=== PATIENT | male | born 1930 | race Caucasian/White ===

== ENCOUNTER 2017-01-19 09:10 | Inpatient (IN) | payer MEDICARE, BC ==
[2017-01-21] MEDS ORDERED: guaiFENesin 600 MG Tab.ER PO PRN (13:37)
[2017-01-21] MEDS ORDERED: Albuterol HFA 18 Gm Inhaler INH PRN (13:37)
[2017-01-21] MEDS: Omeprazole 20 MG Cap.CR PO SCH (17:06)
[2017-01-21] MEDS: Montelukast 10 MG Tab PO SCH (21:14)
[2017-01-21] MEDS: Latanoprost 0.005% Ophth Soln 2.5 ML Bottle EYEBOTH SCH (21:14)
[2017-01-21] MEDS: oxyCODONE 5 MG Tab PO PRN (21:21)
[2017-01-22] MEDS: Omeprazole 20 MG Cap.CR PO SCH ×2 (06:05→17:07)
[2017-01-22] MEDS: oxyCODONE 5 MG Tab PO PRN ×2 (08:16→23:08)
[2017-01-22] MEDS: Multivitamins with Minerals/Iron/Folic Acid/Lycopene Tab PO SCH (08:17)
[2017-01-22] MEDS: Calcium Citrate/Vitamin D3 315 MG-250 Unit Tab PO SCH (08:18)
[2017-01-22] MEDS: Potassium Chloride 20 MEQ Tab.ER PO SCH (08:18)
[2017-01-22] MEDS: Hydrochlorothiazide 25 MG Tab PO SCH (08:19)
[2017-01-22] MEDS: Lutein/Minerals/Vitamins A, C & E Tab PO SCH (08:19)
[2017-01-22] MEDS: Cholecalciferol (Vitamin D3) 1,000 Unit Tab PO SCH (08:20)
[2017-01-22] MEDS: Fluticasone/Salmeterol 500-50 MCG Inhalation Powder 14/Diskus INH SCH ×2 (09:00→21:24)
[2017-01-22] MEDS: Magnesium Oxide 500 MG Tab PO SCH (12:34)
--- NOTE | 2017-01-22 16:15 | HP ---
HISTORY OF PRESENT ILLNESS: The patient was having some abdominal pain, fever, nausea, and vomiting. He went to the emergency room in [place], [place]. At that time, the patient was hypotensive and had a low blood pressure. He was transferred to [facility]. The patient continued to be hypotensive after IV fluids. He was admitted to the Intensive Care Unit in [place] with septic shock secondary to diverticulitis. The patient was transferred here yesterday 01/21/2017 for swing bed status. PAST MEDICAL HISTORY: The patient does have a history of diverticulitis, asthma, hypertension, and GERD. MEDICATIONS: Medications that the patient was taking at home or coming from hospital in [place]; he was on omeprazole 20 mg twice a day, potassium chloride 20 mEq daily, Symbicort 2 puffs twice a day, albuterol inhaler as needed, calcium citrate with vitamin D3 2 tablets daily, oxycodone 5 mg every 6 hours as needed, multivitamin, vitamin D3 2000 units daily, some guaifenesin as needed, Ocuvite 1 tablet daily, some Xalatan eyedrops one drop both eyes at bedtime. He is taking some HCTZ 25 mg daily, along with Singulair 10 mg at bedtime. ALLERGIES: Cipro and latex. SOCIAL/PERSONAL HISTORY: The patient is retired dentist. He does live with his in an apartment building in [place], [place]. He denies any alcohol or tobacco use. He states he quit smoking 30 years ago. REVIEW OF SYSTEMS: CONSTITUTIONAL: No weight loss. No fever. No chills. No night sweats. Appetite is good. No fatigue. EYES: No recent visual changes. ENT: No sinus congestion or hoarseness. CARDIOVASCULAR: No chest pain or palpitations. RESPIRATORY: No cough. No shortness of breath. GI: No vomiting, diarrhea or melena. : No dysuria or hematuria. MUSCULOSKELETAL: No new bone pain or joint swelling. INTEGUMENTARY: No rash or pruritus. NEUROLOGIC/PSYCHIATRIC: No recent headache or focal weakness. No depressive symptoms. ENDOCRINE: No heat or cold intolerances or polydipsia. HEMATOLOGIC/LYMPHATIC: No excessive bruising or lymph node swelling. ALLERGIC/IMMUNOLOGIC: No hives or recurrent infections. PHYSICAL EXAMINATION: GENERAL: This is an elderly white male, in no acute distress. VITAL SIGNS: Temperature is 97.6, pulse 98, blood pressure is 119/87, respiratory rate 20, and oxygen sat saturation on 3L nasal cannula is 98%. HEENT: Head is normocephalic. EOMS are intact. Pupils are equal, round, and reactive to light and accommodation. Bilateral tympanic membranes are intact. Nose is clear. No pharyngeal erythema noted. NECK: Supple. No JVD. Trachea midline. LUNGS: Clear to auscultation throughout lung elder. Slightly diminished at bilateral bases. CARDIAC: Regular rate and rhythm. No murmurs identified. ABDOMEN: Soft, nontender, and nondistended. Bowel sounds present x4. EXTREMITIES: Full range of motion. No joint effusions noted. NEUROLOGICAL: Grossly intact. DIAGNOSTIC: The patient had lab work drawn yesterday morning prior to transfer to the [facility]. The patient's magnesium level yesterday morning was low at 1.7. The patient's chemistry panel showed glucose 102, BUN 11, creatinine 0.73, sodium 131, potassium 3.3, chloride 89, calcium 8.9, phosphorus 3.4, and albumin 3.3. Corrected calcium was 9.5. GFR was greater than 90. The patient's CBC that was obtained showed a white count of 5.1, hemoglobin 12.9, and platelet count at 308. IMPRESSION/PLAN: 1. Recent episode of diverticulitis with septic shock. Plan: The patient is admitted here at swing bed status. We are going to order physical therapy for strengthening and conditioning. The patient does live in apartment in [place] with his . 2. Maybe some chronic obstructive pulmonary disease with history of asthma. Plan: The patient was taking Symbicort at home. He was transferred here on Advair. We will just continue with Advair Diskus 500/50 one inhalation twice daily. Continue Singulair 10 mg at bedtime. He does have an albuterol inhaler that he can use it as needed. We will continue with oxygen to keep his sats greater than 92%. We will try to wean the patient off that as tolerated. 3. Hypertension. Plan: The patient's blood pressures have been well- controlled since admitted. We will continue with HCTZ 25 mg daily. 4. Gastroesophageal reflux disease. Plan: Continue with omeprazole 20 mg twice daily. 5. Hypokalemia. The patient's potassium level that was drawn yesterday morning which was 01/21/2017, was slightly on the low side at 3.3. We will continue with potassium chloride 20 mEq p.o. daily. 6. Pain. The patient denies any pain at this time. He can take some oxycodone 5 mg tablets as needed. 7. Hypomagnesemia. Plan: The patient's magnesium level that was drawn yesterday morning was slightly low at 1.7. We will start the patient on magnesium oxide 500 mg daily and Repeat magnesium level in a few days. /[id number]/MODL
[2017-01-22] MEDS ORDERED: Fluticasone/Salmeterol 500-50 MCG Inhalation Powder 14/Diskus INH SCH (21:00)
[2017-01-22] MEDS: Montelukast 10 MG Tab PO SCH (21:24)
[2017-01-22] MEDS: Latanoprost 0.005% Ophth Soln 2.5 ML Bottle EYEBOTH SCH (21:24)
[2017-01-23] MEDS: Omeprazole 20 MG Cap.CR PO SCH ×2 (06:41→17:54)
[2017-01-23] MEDS: Cholecalciferol (Vitamin D3) 1,000 Unit Tab PO SCH (10:09)
[2017-01-23] MEDS: Fluticasone/Salmeterol 500-50 MCG Inhalation Powder 14/Diskus INH SCH ×2 (10:09→20:54)
[2017-01-23] MEDS: Calcium Citrate/Vitamin D3 315 MG-250 Unit Tab PO SCH (10:10)
[2017-01-23] MEDS: Hydrochlorothiazide 25 MG Tab PO SCH (10:10)
[2017-01-23] MEDS: Lutein/Minerals/Vitamins A, C & E Tab PO SCH (10:10)
[2017-01-23] MEDS: Magnesium Oxide 500 MG Tab PO SCH (10:10)
[2017-01-23] MEDS: Multivitamins with Minerals/Iron/Folic Acid/Lycopene Tab PO SCH (10:10)
[2017-01-23] MEDS: Potassium Chloride 20 MEQ Tab.ER PO SCH (10:10)
[2017-01-23] MEDS: Latanoprost 0.005% Ophth Soln 2.5 ML Bottle EYEBOTH SCH (20:55)
[2017-01-23] MEDS: Montelukast 10 MG Tab PO SCH (20:55)
[2017-01-24] MEDS: oxyCODONE 5 MG Tab PO PRN ×2 (01:07→16:47)
[2017-01-24] MEDS: Omeprazole 20 MG Cap.CR PO SCH ×2 (06:23→16:44)
[2017-01-24] MEDS: Fluticasone/Salmeterol 500-50 MCG Inhalation Powder 14/Diskus INH SCH ×2 (08:37→20:29)
[2017-01-24] MEDS: Potassium Chloride 20 MEQ Tab.ER PO SCH (08:38)
[2017-01-24] MEDS: Calcium Citrate/Vitamin D3 315 MG-250 Unit Tab PO SCH (08:38)
[2017-01-24] MEDS: Lutein/Minerals/Vitamins A, C & E Tab PO SCH (08:38)
[2017-01-24] MEDS: Multivitamins with Minerals/Iron/Folic Acid/Lycopene Tab PO SCH (08:38)
[2017-01-24] MEDS: Magnesium Oxide 500 MG Tab PO SCH (08:38)
[2017-01-24] MEDS: Hydrochlorothiazide 25 MG Tab PO SCH (08:38)
[2017-01-24] MEDS: Cholecalciferol (Vitamin D3) 1,000 Unit Tab PO SCH (08:38)
[2017-01-24] MEDS: Acetaminophen 325 MG Tab PO PRN (16:44)
[2017-01-24] MEDS: Latanoprost 0.005% Ophth Soln 2.5 ML Bottle EYEBOTH SCH (20:30)
[2017-01-24] MEDS: Montelukast 10 MG Tab PO SCH (20:30)
[2017-01-25] MEDS: oxyCODONE 5 MG Tab PO PRN ×2 (04:43→18:15)
[2017-01-25] MEDS: Omeprazole 20 MG Cap.CR PO SCH ×3 (04:44→16:31)
[2017-01-25] MEDS: Acetaminophen 325 MG Tab PO PRN ×2 (06:27→21:19)
[2017-01-25] MEDS: Fluticasone/Salmeterol 500-50 MCG Inhalation Powder 14/Diskus INH SCH ×2 (08:35→21:15)
[2017-01-25] MEDS: Calcium Citrate/Vitamin D3 315 MG-250 Unit Tab PO SCH (09:18)
[2017-01-25] MEDS: Cholecalciferol (Vitamin D3) 1,000 Unit Tab PO SCH (09:19)
[2017-01-25] MEDS: Lutein/Minerals/Vitamins A, C & E Tab PO SCH (09:19)
[2017-01-25] MEDS: Hydrochlorothiazide 25 MG Tab PO SCH (09:19)
[2017-01-25] MEDS: Multivitamins with Minerals/Iron/Folic Acid/Lycopene Tab PO SCH (09:19)
[2017-01-25] MEDS: Magnesium Oxide 500 MG Tab PO SCH (09:19)
[2017-01-25] MEDS: Potassium Chloride 20 MEQ Tab.ER PO SCH (09:20)
[2017-01-25] MEDS: Montelukast 10 MG Tab PO SCH (21:14)
[2017-01-25] MEDS: Latanoprost 0.005% Ophth Soln 2.5 ML Bottle EYEBOTH SCH (21:16)
[2017-01-26] MEDS: Omeprazole 20 MG Cap.CR PO SCH ×2 (06:00→16:49)
[2017-01-26] MEDS: oxyCODONE 5 MG Tab PO PRN ×2 (06:08→13:52)
[2017-01-26] MEDS: Fluticasone/Salmeterol 500-50 MCG Inhalation Powder 14/Diskus INH SCH ×2 (08:45→20:04)
[2017-01-26] MEDS: Calcium Citrate/Vitamin D3 315 MG-250 Unit Tab PO SCH (08:56)
[2017-01-26] MEDS: Multivitamins with Minerals/Iron/Folic Acid/Lycopene Tab PO SCH (08:57)
[2017-01-26] MEDS: Potassium Chloride 20 MEQ Tab.ER PO SCH (08:58)
[2017-01-26] MEDS: Lutein/Minerals/Vitamins A, C & E Tab PO SCH (08:58)
[2017-01-26] MEDS: Cholecalciferol (Vitamin D3) 1,000 Unit Tab PO SCH (08:58)
[2017-01-26] MEDS: Hydrochlorothiazide 25 MG Tab PO SCH (08:59)
[2017-01-26] MEDS: Magnesium Oxide 500 MG Tab PO SCH (08:59)
[2017-01-26] MEDS: Docusate Sodium 100 MG Cap PO SCH (10:35)
[2017-01-26] MEDS: Latanoprost 0.005% Ophth Soln 2.5 ML Bottle EYEBOTH SCH (20:04)
[2017-01-26] MEDS: Montelukast 10 MG Tab PO SCH (20:04)
[2017-01-27] MEDS: oxyCODONE 5 MG Tab PO PRN ×2 (03:37→13:59)
[2017-01-27] MEDS: Acetaminophen 325 MG Tab PO PRN (05:21)
[2017-01-27] MEDS: Omeprazole 20 MG Cap.CR PO SCH ×2 (06:05→16:34)
[2017-01-27] MEDS: Calcium Citrate/Vitamin D3 315 MG-250 Unit Tab PO SCH (08:02)
[2017-01-27] MEDS: Fluticasone/Salmeterol 500-50 MCG Inhalation Powder 14/Diskus INH SCH ×2 (08:02→21:06)
[2017-01-27] MEDS: Docusate Sodium 100 MG Cap PO SCH ×2 (08:03→21:05)
[2017-01-27] MEDS: Multivitamins with Minerals/Iron/Folic Acid/Lycopene Tab PO SCH (08:03)
[2017-01-27] MEDS: Hydrochlorothiazide 25 MG Tab PO SCH (08:03)
[2017-01-27] MEDS: Potassium Chloride 20 MEQ Tab.ER PO SCH (08:04)
[2017-01-27] MEDS: Cholecalciferol (Vitamin D3) 1,000 Unit Tab PO SCH (08:04)
[2017-01-27] MEDS: Magnesium Oxide 500 MG Tab PO SCH (08:04)
[2017-01-27] MEDS: Lutein/Minerals/Vitamins A, C & E Tab PO SCH (08:04)
[2017-01-27] MEDS: Montelukast 10 MG Tab PO SCH (21:07)
[2017-01-27] MEDS: Latanoprost 0.005% Ophth Soln 2.5 ML Bottle EYEBOTH SCH (21:07)
[2017-01-28] MEDS: Omeprazole 20 MG Cap.CR PO SCH ×2 (06:40→17:00)
[2017-01-28] MEDS: Magnesium Oxide 500 MG Tab PO SCH (08:14)
[2017-01-28] MEDS: Lutein/Minerals/Vitamins A, C & E Tab PO SCH (08:14)
[2017-01-28] MEDS: Potassium Chloride 20 MEQ Tab.ER PO SCH (08:14)
[2017-01-28] MEDS: Cholecalciferol (Vitamin D3) 1,000 Unit Tab PO SCH (08:14)
[2017-01-28] MEDS: Hydrochlorothiazide 25 MG Tab PO SCH (08:15)
[2017-01-28] MEDS: Multivitamins with Minerals/Iron/Folic Acid/Lycopene Tab PO SCH (08:15)
[2017-01-28] MEDS: Calcium Citrate/Vitamin D3 315 MG-250 Unit Tab PO SCH (08:15)
[2017-01-28] MEDS: Docusate Sodium 100 MG Cap PO SCH (08:15)
[2017-01-28] MEDS: Fluticasone/Salmeterol 500-50 MCG Inhalation Powder 14/Diskus INH SCH ×2 (08:15→20:22)
[2017-01-28] MEDS: Montelukast 10 MG Tab PO SCH (20:22)
[2017-01-28] MEDS: Latanoprost 0.005% Ophth Soln 2.5 ML Bottle EYEBOTH SCH (20:22)
[2017-01-29] MEDS: oxyCODONE 5 MG Tab PO PRN (02:39)
[2017-01-29] MEDS: Omeprazole 20 MG Cap.CR PO SCH (06:17)
[2017-01-29 06:46] VITALS: BP 130/73
[2017-01-29] MEDS: Acetaminophen 325 MG Tab PO PRN (07:35)
[2017-01-29] MEDS: Fluticasone/Salmeterol 500-50 MCG Inhalation Powder 14/Diskus INH SCH (08:20)
[2017-01-29] MEDS: Cholecalciferol (Vitamin D3) 1,000 Unit Tab PO SCH (08:21)
[2017-01-29] MEDS: Lutein/Minerals/Vitamins A, C & E Tab PO SCH (08:21)
[2017-01-29] MEDS: Calcium Citrate/Vitamin D3 315 MG-250 Unit Tab PO SCH (08:22)
[2017-01-29] MEDS: Multivitamins with Minerals/Iron/Folic Acid/Lycopene Tab PO SCH (08:22)
[2017-01-29] MEDS: Hydrochlorothiazide 25 MG Tab PO SCH (08:22)
[2017-01-29 08:23] LABS: CHLORIDE,CL 92 mmol/L (98-115); SODIUM,NA 132 mmol/L (136-145)
[2017-01-29] MEDS: Magnesium Oxide 500 MG Tab PO SCH (08:23)
[2017-01-29] MEDS: Docusate Sodium 100 MG Cap PO SCH (08:23)
[2017-01-29] MEDS: Potassium Chloride 20 MEQ Tab.ER PO SCH (08:23)
--- NOTE | 2017-02-02 09:28 | PCM.DCSUM1 ---
Discharge Summary - Discharge Data Discharge Date: 03/01/17 Discharge Disposition: Home, Self-Care 01 Condition: Good - Patient Summary/Data Complications: No complications during his hospital stay other than mild hypomagnesemia and hypokalemia which were corrected. Patient continued with physical therapy and did quite well. He never became hemodynamically unstable, he never ran a temperature. Consults: Consultations 01/21/17 15:02 Consult to Physical Therapy [PT Evaluation and Treatment] [CONS] Routine Hospital Course: Patient did well throughout the hospital stay without complications that were major. He never had signs and symptoms of active infection or septic. Electrolytes were corrected, he was started on Symbicort since he was taking this at home however he was transferred here on Advair. Did quite well in physical therapy. Tolerating his diet well. Placed him on magnesium oxide - Patient Instructions Diet: Usual Diet as Tolerated Activity: As Tolerated Showering/Bathing: May Shower Notify Provider of: Fever, Nausea and/or Vomiting Other/Special Instructions: report any abd pain - Discharge Plan Prescriptions/Med Rec: Budesonide/Formoterol Fumarate [Symbicort 160-4.5 Mcg Inhaler] 2 puff IH BID #1 [email or web address] Home Medications: Home Meds Latanoprost [Xalatan 0.005% Ophth Soln] 1 drop EYEBOTH BEDTIME 07/11/14 [History ] Lutein/Min/Vit C/Vit E Acetate [Ocuvite Lutein] 1 cap PO DAILY 07/11/14 [History ] Montelukast Sodium [Singulair] 10 mg PO BEDTIME 07/11/14 [History] Potassium Chloride [Klor-Con M20] 20 meq PO DAILY 07/11/14 [History] Albuterol [Ventolin HFA] 2 puff INH Q6H PRN 01/09/17 [History] Hydrochlorothiazide 25 mg PO DAILY 01/09/17 [History] Calcium Citrate/Vitamin D3 [Calcium Citrate-Vit D3 Tablet] 2 tab PO DAILY [History] Cholecalciferol (Vitamin D3) [Vitamin D3] 2,000 units PO DAILY 01/21/17 [History ] Multivitamins,Ther w-Minerals [Multivitamins with Minerals HP] 1 each PO DAILY 01/21/17 [History] Omeprazole 20 mg PO BIDAC 01/21/17 [History] guaiFENesin [Mucus Relief] 400 mg PO Q4H PRN 01/21/17 [History] oxyCODONE 5 mg PO Q6H PRN 01/21/17 [History] Budesonide/Formoterol Fumarate [Symbicort 160-4.5 Mcg Inhaler] 2 puff IH BID #1 [email or web address] 01/29/17 [Rx] - Discharge Summary/Plan Comment DC Time >30 min.: No Discharge Summary/Plan Comment: Final DX Deconditioning COPD hypertension Hypomagnesemia Recent diverticulitis with septic shock - Patient Data Vitals - Most Recent: Last Vital Signs Temp 97.0 F 01/29/17 06:42 Pulse 72 01/29/17 06:42 Resp 18 01/29/17 06:42 BP 130/73 01/29/17 06:42 Pulse Ox 97 01/29/17 06:42 Weight - Most Recent: 161 lb 6 oz Med Orders - Current: Current Medications Discontinued Medications Acetaminophen (Tylenol) 650 mg PO Q4H PRN PRN Reason: analgesia/fever Last Admin: 01/29/17 07:35 Dose: 650 mg Albuterol (Ventolin Hfa) 0 gm INH Q6H PRN PRN Reason: Wheezing Calcium Citrate (Calcium Citrate + D) 2 tab PO DAILY [facility] Last Admin: 01/29/17 08:22 Dose: 2 tab Cholecalciferol (Vitamin D3) 2,000 units PO DAILY [facility] Last Admin: 01/29/17 08:21 Dose: 2,000 units Docusate Sodium (Colace) 100 mg PO DAILY [facility] Last Admin: 01/29/17 08:23 Dose: 100 mg Guaifenesin (Mucinex) 600 mg PO BID PRN PRN Reason: Cough Hydrochlorothiazide (Hydrochlorothiazide) 25 mg PO DAILY [facility] Last Admin: 01/29/17 08:22 Dose: 25 mg Latanoprost (Xalatan 0.005% Ophth Soln) 0 ml EYEBOTH BEDTIME [facility] Last Admin: 01/28/17 20:22 Dose: 1 drop Magnesium Oxide (Magnesium Oxide) 500 mg PO DAILY [facility] Last Admin: 01/29/17 08:23 Dose: 500 mg Montelukast Sodium (Singulair) 10 mg PO BEDTIME [facility] Last Admin: 01/28/17 20:22 Dose: 10 mg Multivitamins/Minerals (Ocuvite) 1 each PO DAILY [facility] Last Admin: 01/29/17 08:21 Dose: 1 each Multivitamins/Minerals (Centrum) 1 tab PO DAILY [facility] Last Admin: 01/29/17 08:22 Dose: 1 tab Omeprazole (Omeprazole) 20 mg PO BIDAC [facility] Last Admin: 01/29/17 06:17 Dose: 20 mg Oxycodone HCl (Oxycodone) 5 mg PO Q6H PRN PRN Reason: Pain Last Admin: 01/29/17 02:39 Dose: 5 mg Potassium Chloride (Klor-Con M20) 20 meq PO DAILY [facility] Last Admin: 01/29/17 08:23 Dose: 20 meq Fluticasone/Salmeterol (Advair Diskus 500-50) 1 puff INH BID [facility] Fluticasone/Salmeterol (Advair Diskus 500-50) 1 puff INH BID [facility] Last Admin: 01/29/17 08:20 Dose: Not Given *Q Meaningful Use (DIS) - VTE *Q VTE Criteria *Q: - Stroke *Q Stroke Criteria *Q: - AMI *Q AMI Criteria *Q:
== END 2017-01-29 12:55 | disposition home or self-care (01) | DRG 948 ==
LOC: KA.MS 01-21 12:42
PROVIDERS: ADMIT Nurse Practitioner Family; ATTEND Nurse Practitioner Family
DX: R53.1 Weakness (principal); K57.92 Diverticulitis of intestine, part unspecified, without perforation or abscess without bleeding; J45.909 Unspecified asthma, uncomplicated; I10 Essential (primary) hypertension; K21.9 Gastro-esophageal reflux disease without esophagitis; Z79.899 Other long term (current) drug therapy; Z87.891 Personal history of nicotine dependence; J44.9 Chronic obstructive pulmonary disease, unspecified; E87.6 Hypokalemia; E83.42 Hypomagnesemia
CPT/HCPCS: 36415; 80048; 94640; 97110-GP; 97162-GP; A9270-GY; G0283-GP